=== PATIENT | male | born 1965 | race Caucasian/White ===

== ENCOUNTER 2016-08-25 14:29 | Emergency (ER) | payer BC ==
[~2016-08-25] VITALS: Ht 165.1 cm; Wt 95.5 kg
[2016-08-25 14:30] VITALS: BP 166/97; PULSE 70; RESP 16; TEMP 98.7; O2SAT 99
--- NOTE | 2016-08-25 14:47 | PD ---
HPI Chief Complaint: Pain: Acute or Chronic Time Seen by Provider: 14:46 Travel History International Travel<30 days: No Contact w/Intl Traveler<30days: No Traveled to known affect area: No History of Present Illness HPI 50-year-old male presents to the emergency Department with complaint of left knee pain. Approximately one month ago he was told by his primary care provider that he had arthritis in his knee. Today while at work he heard a pop in the left knee. He has had worsening pain since he heard the pop. He says his knee is swollen and he can barely walk on it. Denies paresthesias, loss of sensation to the affected extremity. Reports decreased range of motion to the knee secondary to pain. Denies fever, chills, nausea, vomiting. Has taken ibuprofen 400 mg approximately 2 hours ago with minimal relief of pain. Has not taken any other medications or tried any other treatments to alleviate his symptoms. He is aggravated with walking, bending, palpation. Pain is to the posterior and medial aspect of the knee. No known allergies. No other modifying factors or associated signs and symptoms. PFSH Social History Tobacco Use: No Allergies-Medications (Allergen,Severity, Reaction): Coded Allergies: No Known Allergies (Unverified , 08/25/16) Reported Meds & Prescriptions Reported Meds & Active Scripts Active Naproxen 500 Mg Tab 500 Mg PO BID 7 Days Deltasone (Prednisone) 20 Mg Tab 40 Mg PO DAILY 7 Days Review of Systems Except as stated in HPI: all other systems reviewed are Neg Physical Exam Narrative GENERAL: Well-nourished, well-developed male patient, in no acute distress; afebrile, nontoxic-appearing SKIN: Warm and dry. HEAD: Atraumatic. Normocephalic. EYES: Pupils equal and round. No scleral icterus. No injection or drainage. ENT: Mucosa pink and moist. Airway patent. NECK: Trachea midline. CARDIOVASCULAR: Regular rate. RESPIRATORY: No accessory muscle use. GASTROINTESTINAL: Rounded. MUSCULOSKELETAL: Left knee is mildly edematous; without erythema, ecchymosis; with tenderness on palpation to the medial and posterior aspect; no obvious deformity; decreased range of motion with flexion to approximately 45 secondary to pain patient guarding; unable to perform drawer test secondary to decreased range of motion. Left lower extremity is supple and non-tense with 2 + pedal pulses and sensory intact without erythema or edema. NEUROLOGICAL: Awake and alert. Oriented 3. No obvious cranial nerve deficits. Motor grossly within normal limits. Normal speech. PSYCHIATRIC: Appropriate mood and affect; insight and judgment normal. Data Data Last Documented VS Vital Signs Date Time Temp Pulse Resp B/P Pulse Ox O2 Delivery O2 Flow Rate FiO2 08/25/16 14:30 98.7 70 16 166/97 99 Room Air Orders Knee, Complete (4vws) (08/25/16 14:47) Splint Or Brace Apply/Monitor (08/25/16 14:47) Crutches (08/25/16 14:47) Ibuprofen (Motrin) (08/25/16 15:00) MDM Medical Decision Making Medical Screen Exam Complete: Yes Emergency Medical Condition: Yes Medical Record Reviewed: Yes Differential Diagnosis Arthritis, effusion, bursitis, meniscal tear, ACL tear Narrative Course 50-year-old male with left knee pain. He has been told by his primary care doctor that he has arthritis in his knee about a month ago. Today he was at work and heard a pop in his knee. The left knee is edematous and with tenderness on palpation. Is without erythema or signs of septic joint. Ibuprofen administered in the ER. Left knee x-ray ordered. 1539: Left knee x-ray concludes Last 24 hours Impressions Knee X-Ray 08/25/16 1447 Signed Impressions: Service Date/Time: Thursday, August 25, 2016 15:20 - CONCLUSION: 1. 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 Isaac Ho MD Patient provided with a copy of the x-ray report. Kamaljit bandage and crutches provided for support. Deltasone and naproxen prescribed for home. Instructed patient to follow up with orthopedics. Patient verbalizes understanding and agreement with treatment plan. Patient is medically cleared and stable for discharge. Discussed reasons to return to the emergency department. Instructed patient to follow up with primary care provider. Patient agrees with treatment plan. The patients vital signs are stable and the patient is stable for outpatient follow-up and treatment. Patient discharged home, stable and in no acute distress. Diagnosis Primary Impression: Osteoarthritis of left knee Qualified Code: M17.12 - Osteoarthritis of left knee, unspecified osteoarthritis type Additional Impression: Effusion of left knee Referrals: Orthopedist Primary Care Physician Patient Instructions: Crutch Instructions (ED), General Instructions, Osteoarthritis (ED) Departure Forms: Tests/Procedures, Work Release Enter return to work date: Sep 01, 2016 Additional Instructions: Tylenol or ibuprofen as needed and as directed to reduce pain and inflammation Rest, ice, compress, and elevate extremity to decrease pain and inflammation Knee Brace for support; Kamaljit bandage for compression and support Crutches for support Avoid aggravating activity; increase activity as tolerated Follow-up with primary care provider Follow-up with orthopedic Return to the emergency department immediately with worsening symptoms Med/Other Pt SpecificInfo: Prescription(s) given Scripts Naproxen 500 Mg [id number] Mg PO BID 7 Days Ref 0 Prov:Katie Neumann 08/25/16 Prednisone (Deltasone)20 Mg Tab40 Mg PO DAILY 7 Days Ref 0 Prov:Katie Neumann 08/25/16 Disposition: 01 DISCHARGE HOME Condition: Stable Katie Neumann Aug 25, 2016 14:46
[2016-08-25] MEDS ORDERED: IBUPROFEN 400 MG TAB PO ONE (15:00)
--- NOTE | 2016-08-25 15:22 | RADRPT ---
EXAM DATE/TIME: 08/25/2016 15:20 [facility] COMPARISON: No previous studies available for comparison. INDICATIONS : Posterior left knee pain. MEDICAL HISTORY : None. SURGICAL HISTORY : None. ENCOUNTER: Initial ACUITY: 1 day PAIN SCORE: 9/10 LOCATION: Left knee FINDINGS: The examination demonstrates a large effusion in the suprapatellar bursa. There is mild tricompartmen lalo osteoarthritis. CONCLUSION: 1. 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 Isaac Ho MD on August 25, 2016 at 15:21 Board Certified Radiologist. This report was verified electronically.
[2016-08-25] MEDS ORDERED: NAPR500T PO (15:36)
[2016-08-25] MEDS ORDERED: PRED-503 PO (15:36)
== END 2016-08-25 16:06 | disposition home or self-care (01) ==
LOC: NEPK 14:29
DX: M17.12 Unilateral primary osteoarthritis, left knee (principal); M25.462 Effusion, left knee
CPT/HCPCS: 73564; 99283; E0113